=== PATIENT | female | born 1990 | race Caucasian/White ===

== ENCOUNTER 2018-02-17 12:48 | Emergency (ER) | payer SELFPAY ==
--- NOTE | 2018-02-17 13:54 | EDM.PDOC ---
ED HPI GENERAL MEDICAL PROBLEM - General Chief Complaint: Back Pain or Injury Stated Complaint: BACK PAIN Time Seen by Provider: 02/17/18 12:57 Source of Information: Reports: Patient History Limitations: Reports: No Limitations - History of Present Illness INITIAL COMMENTS - FREE TEXT/NARRATIVE: The patient a few weeks ago had trouble with sciatica and she went to her chiropractor and that helped. This morning she woke up with an ache in her back and she took motrin. 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 It did not go down both legs. She has no numbness or weakness. She has no bowel bladder problems. She has no dysuria. Onset: Gradual Duration: Hour(s): Location: Reports: Back Quality: Reports: Sharp Severity: Severe Improves with: Reports: Immobilization Worsens with: Reports: Movement Context: Reports: Activity (Delivering alberto) Associated Symptoms: Reports: No Other Symptoms Lower Back Pain Score (Numeric/FACES): 10 - Related Data Allergies Allergy/AdvReac Type Severity Reaction Status Date / Time No Known Allergies Allergy Verified 02/17/18 13:10 Home Meds: Home Meds Cyclobenzaprine [Flexeril] 10 mg PO TID PRN #20 tab 02/17/18 [Rx] Hydrocodone/Acetaminophen [Hydrocodon-Acetaminophen 5-325] 1 - 2 each PO Q6HR PRN #20 tablet 02/17/18 [Rx] Past Medical History - Past Health History Medical/Surgical History: Denies Medical/Surgical History Endocrine/Metabolic History: Reports: Obesity/BMI 30+ Dermatologic History: Reports: Other (See Below) Other Dermatologic History: Cyst removed from right congregational Social & Family History - Family History Family Medical History: Noncontributory - Tobacco Use Smoking Status *Q: Never Smoker Second Hand Smoke Exposure: No - Caffeine Use Caffeine Use: Reports: Coffee - Recreational Drug Use Recreational Drug Use: No ED ROS GENERAL - Review of Systems Review Of Systems: See Below Constitutional: Reports: No Symptoms HEENT: Reports: No Symptoms Respiratory: Reports: No Symptoms Cardiovascular: Reports: No Symptoms Endocrine: Reports: No Symptoms GI/Abdominal: Reports: No Symptoms : Reports: No Symptoms Musculoskeletal: Reports: Back Pain ED EXAM,LOWER BACK PAIN/INJURY - Physical Exam Exam: See Below Exam Limited By: No Limitations General Appearance: Alert, No Apparent Distress Ears: Normal External Exam Nose: Normal Inspection Head: Atraumatic, Normocephalic Neck: Normal Inspection Respiratory/Chest: No Respiratory Distress, Lungs Clear, Normal Breath Sounds Cardiovascular: Regular Rate, Rhythm, No Edema, No Murmur GI/Abdominal: Soft, Non-Tender, No Organomegaly, No Mass Back Exam: Other (Mild pain upon palpation to the low back) Extremities: Normal Inspection Neurological: Alert, No Motor/Sensory Deficits, Oriented x 3 Course - Vital Signs Last Recorded V/S: Last Vital Signs Temp 98.5 F 02/17/18 13:00 Pulse 78 02/17/18 13:00 Resp 20 02/17/18 13:00 BP 137/87 02/17/18 13:00 Pulse Ox 98 02/17/18 13:00 - Re-Assessments/Exams Free Text/Narrative Re-Assessment/Exam: 02/17/18 13:51 The patient called around and she was told we could do MRI's out of the ER. I informed her that we could not except in rate instances and on the weekend we can do no MRIs. I do not think she needs an MRI at this point. I will get her on a muscle relaxer and something stronger for pain. I will refer her to PT and one Aranza Walter. Departure - Departure Time of Disposition: 14:00 Disposition: Home, Self-Care 01 Condition: Good Clinical Impression: Low back pain Qualifiers: Chronicity: acute Back pain laterality: bilateral Sciatica presence: without sciatica Qualified Code(s): M54.5 - Low back pain - Discharge Information *PRESCRIPTION DRUG MONITORING PROGRAM REVIEWED*: No *COPY OF PRESCRIPTION DRUG MONITORING REPORT IN PATIENT TITI: No Prescriptions: Hydrocodone/Acetaminophen [Hydrocodon-Acetaminophen 5-325] 1 - 2 each PO Q6HR PRN #20 tablet PRN Reason: Pain Cyclobenzaprine [Flexeril] 10 mg PO TID PRN #20 tab PRN Reason: Pain Referrals: PCP,None [Primary Care Provider] - Sebastián Wright PA [Physician Dials Supervisor] - 1 Week Additional Instructions: Take an antiinflammatory such as motrin or aleve. Take the flexeril as needed for the pain and hydrocodone. Follow up with physical therapy. There is therapist at our hospital or there are a few private therapists in town. Follow up with Sebastián Wright at our clinic in 1 to 2 weeks. Please return if you are worse such as more pain, can't urinate, numbness, weakness or incontinence of stool.
== END 2018-02-17 14:25 | disposition home or self-care (01) ==
LOC: JD.ED 12:48
DX: M54.5 Low back pain (principal); E66.9 Obesity, unspecified
CPT/HCPCS: 99283

== ENCOUNTER 2019-03-02 13:48 | Emergency (ER) | payer SELFPAY ==
[2019-03-02] MEDS: Sodium Chloride 0.9% 10 ML Syringe FLUSH PRN ×3 (14:33→17:58)
--- NOTE | 2019-03-02 14:40 | EDM.PDOC ---
ED HPI GENERAL MEDICAL PROBLEM - General Chief Complaint: Chest Pain Stated Complaint: SENT BY FOR CT SCAN Time Seen by Provider: 03/02/19 14:09 Source of Information: Reports: Patient, RN Notes Reviewed History Limitations: Reports: No Limitations - History of Present Illness INITIAL COMMENTS - FREE TEXT/NARRATIVE: Patient is a 28-year-old female who presents to the ED for the evaluation of chest pain. Patient was evaluated by Dr. Guthrie at the walk-in clinic this morning, she had an EKG and a chest x-ray done and this was all within normal limits. A d-dimer was done, and the patient left before it was resulted, and this was elevated at 0.54. The patient has been complaining of some mild chest pain, and/or chest tightness feeling that worsens with deep breathing at times. She also characterizes a dry cough for the last 3 days. She notes a history of PCOS, and is unsure if she could be at today's visit, She does not remember them checking her for at the walk-in clinic either. She denies any sort of fevers or chills, or any other feelings of being unwell. The patient notes that she had a dad who from a fatal cardiac arrhythmia, but is unsure of any sort of family history of blood clots. Dr. Guthrie did call and made us aware of the patient's impending arrival and stated that she would need a chest CT to rule out pulmonary embolus. Chest Pain Score (Numeric/FACES): 5 - Related Data Allergies Allergy/AdvReac Type Severity Reaction Status Date / Time No Known Allergies Allergy Verified 03/02/19 14:09 Home Meds: Home Meds . [No Known Home Meds] 03/02/19 [History] Past Medical History - Past Health History Medical/Surgical History: Denies Medical/Surgical History Endocrine/Metabolic History: Reports: Obesity/BMI 30+ Dermatologic History: Reports: Other (See Below) Other Dermatologic History: Cyst removed from right holiness Social & Family History - Family History Family Medical History: Noncontributory - Caffeine Use Caffeine Use: Reports: Coffee ED ROS GENERAL - Review of Systems Review Of Systems: See Below Constitutional: Denies: Fever, Chills HEENT: Reports: No Symptoms Respiratory: Reports: Shortness of Breath (mild), Cough (dry cough). Denies: Wheezing Cardiovascular: Reports: Chest Pain (mild, chest tightness). Denies: Blood Pressure Problem, Palpitations GI/Abdominal: Denies: Nausea, Vomiting Musculoskeletal: Reports: No Symptoms Skin: Reports: No Symptoms Neurological: Denies: Dizziness, Headache, Numbness, Syncope, Tingling Psychiatric: Reports: No Symptoms Hematologic/Lymphatic: Reports: No Symptoms Immunologic: Reports: No Symptoms ED EXAM, GENERAL - Physical Exam Exam: See Below Exam Limited By: No Limitations General Appearance: Alert, WD/WN, No Apparent Distress, Obese (pt is morbidly obese) Eye Exam: Bilateral Eye: EOMI, Normal Inspection, PERRL Throat/Mouth: Normal Inspection, Normal Lips, Normal Teeth, Normal Gums, Normal Oropharynx, Normal Voice, No Airway Compromise Head: Atraumatic, Normocephalic Neck: Normal Inspection Respiratory/Chest: No Respiratory Distress, Lungs Clear, No Accessory Muscle Use , Chest Non-Tender, Decreased Breath Sounds (bilaterally) Cardiovascular: Normal Peripheral Pulses, Regular Rate, Rhythm, No Murmur Peripheral Pulses: 3+: Radial (L), Radial (R) Extremities: Normal Inspection, Normal Capillary Refill Neurological: Alert, Oriented, Normal Cognition, No Motor/Sensory Deficits Psychiatric: Normal Affect, Normal Mood Skin Exam: Warm, Dry, Intact, Normal Color, No Rash Course - Vital Signs Last Recorded V/S: Last Vital Signs Temp 98.0 F 03/02/19 14:09 Pulse 100 03/02/19 14:09 Resp 19 03/02/19 14:09 BP 147/104 H 03/02/19 14:09 Pulse Ox 95 03/02/19 14:09 - Orders/Labs/Meds Orders: Active Orders 24 hr Category Date Time Status Peripheral IV Care [RC] . DIRECTED Care 03/02/19 14:17 Ordered Sodium Chloride 0.9% [Normal Saline] 100 ml Med 03/02/19 16:15 Active IV ASDIRECTED Sodium Chloride 0.9% [Normal Saline] 100 ml Med 03/02/19 17:00 Active IV ASDIRECTED Sodium Chloride 0.9% [Saline Flush] Med 03/02/19 14:17 Ordered 10 ml FLUSH ASDIRECTED PRN Peripheral IV Insertion Adult [OM.PC] Stat Oth 03/02/19 14:17 Ordered Medication Orders Sodium Chloride (Normal Saline) 100 mls @ 75 mls/hr IV ASDIRECTED SAUL Last Admin: 03/02/19 16:27 Dose: 75 mls/hr Sodium Chloride (Normal Saline) 100 mls @ 75 mls/hr IV ASDIRECTED SAUL Last Admin: 03/02/19 17:58 Dose: 75 mls/hr Sodium Chloride (Saline Flush) 10 ml FLUSH ASDIRECTED PRN PRN Reason: Keep Vein Open Last Admin: 03/02/19 14:33 Dose: 10 ml Labs: Laboratory Tests 03/02/19 Range/Units 14:30 HCG, Qual Negative (NEGATIVE) Meds: Medications Generic Name Dose Route Start Last Admin Trade Name Freq PRN Reason Stop Dose Admin Sodium Chloride 100 mls @ 75 mls/hr 03/02/19 16:15 03/02/19 16:27 Normal Saline IV 75 mls/hr ASDIRECTED SAUL Administration Sodium Chloride 100 mls @ 75 mls/hr 03/02/19 17:00 03/02/19 17:58 Normal Saline IV 75 mls/hr ASDIRECTED SAUL Administration Sodium Chloride 10 ml 03/02/19 14:17 03/02/19 17:58 Saline Flush FLUSH 10 ml ASDIRECTED PRN Administration Keep Vein Open Discontinued Medications Generic Name Dose Route Start Last Admin Trade Name Freq PRN Reason Stop Dose Admin Iopamidol 100 ml 03/02/19 16:05 03/02/19 16:27 [id number] (76%) IVPUSH 03/02/19 16:06 100 ml ONETIME ONE Administration Iopamidol 100 ml 03/02/19 16:53 03/02/19 17:57 Isovue-370 (76%) IVPUSH 03/02/19 16:54 100 ml ONETIME ONE Administration - Re-Assessments/Exams Free Text/Narrative Re-Assessment/Exam: 03/02/19 14:42 Patient presents to the ED for evaluation of chest pain and a possible CT scan. I did talk with Dr. Guthrie on the phone and upon examining the patient I do agree that she should probably receive a chest CT scan with IV contrast to rule out pulmonary embolus. I have ordered an hCG to make sure that she is not before we go ahead with the CT scan. Of note the patient is tachycardic at rest at 106 bpm and mildly tachypneic. 03/02/19 15:19 Patient's hCG came back and is negative at this time, a CT angio of the chest will be obtained to rule out pulmonary embolus. 03/02/19 16:34 CT was done, and demonstrates a steady of poor quality, so the CT was nondiagnostic and did not show any sort of pulmonary embolus area and of note the patient is morbidly obese, and the tech states that the study may have lacked in quality due to that fact. The tech is going to order some IV fluids to hydrate the patient, and try to repeat the scan. 03/02/19 18:23 Patient was rescanned, and the CT angio still does not demonstrate any sort of pulmonary embolus, there are no filling defects noted. Will discharge the patient home with general recommendations, it is likely that her symptoms very well could be from a virus in nature, we'll have her monitor the symptoms and if they worsen I will have her present for re-evaluation. Departure - Departure Time of Disposition: 18:25 Disposition: Home, Self-Care 01 Condition: Fair Clinical Impression: Elevated d-dimer, Cough - Discharge Information *PRESCRIPTION DRUG MONITORING PROGRAM REVIEWED*: No *COPY OF PRESCRIPTION DRUG MONITORING REPORT IN PATIENT TITI: No Instructions: Nonspecific Chest Pain, [id number], Cough, Adult, [id number] Referrals: Jj Guthrie MD [Primary Care Provider] - Forms: ED Department Discharge Additional Instructions: You were evaluated in the ER today for your elevated d-dimer. A chest CT with contrast was done to rule out pulmonary embolus, there was no sign of any pulmonary embolus at this ER visit. The d-dimer is a nonspecific test, and sometimes can be elevated for a number of reasons. It is a test that checks for byproducts of the breakdown of clots. Please watch out for worrisome symptoms like increased shortness of breath, increasing chest pain, etc. as this may be cause for concern for reevaluation. Please return to the ED if your symptoms change or worsen. - My Orders Last 24 Hours: My Active Orders 03/02/19 14:17 Peripheral IV Care [RC] . DIRECTED Sodium Chloride 0.9% [Saline Flush] 10 ml FLUSH ASDIRECTED PRN Peripheral IV Insertion Adult [OM.PC] Stat 03/02/19 16:15 Sodium Chloride 0.9% [Normal Saline] 100 ml IV ASDIRECTED 03/02/19 17:00 Sodium Chloride 0.9% [Normal Saline] 100 ml IV ASDIRECTED - Assessment/Plan Last 24 Hours: My Active Orders 03/02/19 14:17 Peripheral IV Care [RC] . DIRECTED Sodium Chloride 0.9% [Saline Flush] 10 ml FLUSH ASDIRECTED PRN Peripheral IV Insertion Adult [OM.PC] Stat 03/02/19 16:15 Sodium Chloride 0.9% [Normal Saline] 100 ml IV ASDIRECTED 03/02/19 17:00 Sodium Chloride 0.9% [Normal Saline] 100 ml IV ASDIRECTED
[2019-03-02] MEDS ORDERED: Iopamidol 755 Mg/ML 100 ML Bottle IVPUSH ONE ×2 (16:05→16:53)
[2019-03-02] MEDS ORDERED: Sodium Chloride 0.9% 100 ML IV SCH ×2 (16:15→17:00)
--- NOTE | 2019-03-02 16:43 | CT ---
Addendum: Patient was rescanned after replacing IV. Pulmonary artery opacification is much better on current exam. There are no filling defects within the main or segmental branches. No filling defects are seen within the more proximal subsegmental branches. Nothing is seen to indicate pulmonary embolism. Other portions of the exam appear unchanged from previous report. --- Addendum1 above dictated on [03/02/2019 18:17] by [Natasha Barbour, Andrez Pryor] --- --- Addendum1 above signed on [03/02/2019 18:17] by [Natasha Barbour, Andrez Pryor] --- --- Original report below dictated on [03/02/2019 16:39] by [Natasha Barbour, Andrez Pryor] --- --- Original report below signed on [03/02/2019 16:40] by [Natasha Barbour, Andrez Pryor] --- CT chest Technique: Multiple axial sections through the chest are obtained. Intravenous contrast was utilized. Study performed as a pulmonary angiogram protocol. Findings: Very poor opacification of the pulmonary arteries are seen. In conjunction with artifact caused by the patient's body habitus, study is nondiagnostic for pulmonary embolism. Aorta shows no aneurysm. Mediastinum and hilar regions show no adenopathy or mass. Lungs are clear with no acute parenchymal change. No pleural effusions are noted. Visualized upper abdominal structures show nothing gross. Impression: 1. Nondiagnostic study for pulmonary embolism as noted above. 2. Nothing acute is otherwise seen on CT study of the chest. Diagnostic code #2 --- Addendum1 signed ---
== END 2019-03-02 18:39 | disposition home or self-care (01) ==
LOC: JD.ED 13:48
DX: R05 Cough (principal); R79.1 Abnormal coagulation profile; E66.9 Obesity, unspecified; Z68.43 Body mass index [BMI] 50.0-59.9, adult
CPT/HCPCS: 36415; 71275; 84703; 99285; J7030; Q9967

== ENCOUNTER 2022-08-26 19:00 | Emergency (ER) | payer BC, OTHER ==
[2022-08-26] MEDS ORDERED: Sodium Chloride 0.9% 10 ML Syringe FLUSH PRN (19:46)
[2022-08-26] MEDS ORDERED: HYDROmorphone 0.5 MG/0.5 ML Syringe IVPUSH ONE (19:46)
[2022-08-26] MEDS ORDERED: Sodium Chloride 0.9% 1,000 ML IV ONE (19:46)
[2022-08-26] MEDS ORDERED: Iopamidol 612 MG/ML 100 ML Bottle IVPUSH ONE (19:53)
[2022-08-26] MEDS ORDERED: Ondansetron 4 MG/2 ML SDV IVPUSH ONE (20:01)
[2022-08-26] MEDS ORDERED: Cefdinir 300 MG Cap PO ONE (22:52)
== END 2022-08-26 23:20 | disposition home or self-care (01) ==
LOC: JD.ED 19:00
DX: N34.2 Other urethritis (principal); E11.9 Type 2 diabetes mellitus without complications; E66.9 Obesity, unspecified; Z79.84 Long term (current) use of oral hypoglycemic drugs; Z68.43 Body mass index [BMI] 50.0-59.9, adult
CPT/HCPCS: 36415; 74177; 80053; 81001; 85025; 86140; 87086; 96361; 96374; 96375; 99284; A9270; J1170; J2405; J3490; J7030; Q9967